=== PATIENT | male | born 1935 | race Caucasian/White ===

== ENCOUNTER 2017-04-14 12:45 | Emergency (ER) | payer OTHER ==
[2017-04-14 13:13] VITALS: TEMP 97.5; O2SAT 93
--- NOTE | 2017-04-14 13:31 | EDPHY ---
H & P Stated Complaint: fell wed, has bruising on right schwab concerned Time Seen by Provider: 04/14/17 13:30 HPI/ROS: CHIEF COMPLAINT: Bruising and swelling right tibia HISTORY OF PRESENT ILLNESS: The patient presents to the ED with complaints of bruising and swelling to his right distal tibia. The patient fell several days ago. He is anticoagulated with Coumadin. His last INR was therapeutic 3 weeks ago. The patient is ambulatory for short distances. He does have a prior history of stroke. The patient denies any fever. His reports that his urine has been foul smelling. He does have a history of urinary tract infections. REVIEW OF SYSTEMS: A comprehensive 10 point review of systems is otherwise negative aside from elements mentioned in the history of present illness. 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 No compartment syndrome clinically Neurological: The patient has baseline aphasia from his prior stroke Constitutional: Initial Vital Signs Temperature (C) 36.4 C 04/14/17 13:10 Heart Rate 54 L 04/14/17 13:10 Respiratory Rate 20 04/14/17 13:10 Blood Pressure 141/77 H 04/14/17 13:10 O2 Sat (%) 93 04/14/17 13:10 O2 Delivery Mode Room Air Allergies/Adverse Reactions: bacitracin [From Neosporin ([id number])] Allergy (Verified 04/14/17 13:06) lisinopril Allergy (Verified 04/14/17 13:06) metoprolol [From Toprol XL] Allergy (Verified 04/14/17 13:06) neomycin Allergy (Verified 04/14/17 13:06) petrolatum,white [From Petroleum Jelly] Allergy (Verified 04/14/17 13:06) polymyxin B Allergy (Verified 04/14/17 13:06) sulfamethoxazole [From Bactrim] Allergy (Verified 04/14/17 13:06) trimethoprim [From Bactrim] Allergy (Verified 04/14/17 13:06) surgical tape Allergy (Uncoded 04/14/17 13:06) Home Medications: Medication Instructions Recorded Aspirin 81mg (*) 04/14/17 Carvedilol 04/14/17 Citalopram 04/14/17 Folic Acid 04/14/17 Hydrochlorothiazide 04/14/17 Hytrin 1 MG (*) 04/14/17 Losartan Potassium 04/14/17 Multivitamin 04/14/17 Spiriva Inhaler (RX) 04/14/17 Vytorin 10-10 mg Tablet 04/14/17 Warfarin Sodium 04/14/17 Medical Decision Making - Diagnostics Imaging Results: Imaging Impressions Tibia/Fibula X-Ray 04/14/17 13:33 Impression: 1. Soft tissue swelling without underlying bone abnormality. 2. Atherosclerotic disease. ED Course/Re-evaluation: The patient presents the ED for evaluation of right tibial swelling ecchymosis following minor trauma week ago. The patient is currently anticoagulated with Coumadin. The patient did undergo an x-ray which demonstrated no evidence of fracture. His INR was checked and found not to be supratherapeutic. Additionally the patient did have some foul smelling urine for the past several days. In the ED, urinalysis demonstrates no evidence of an acute infection. The patient will be advised to elevate the extremity. He has no evidence of a compartment syndrome. He likely has a small hematoma. I do not feel his Coumadin needs to be held. Differential Diagnosis: Differential diagnosis considered includes fracture, sprain, contusion, hematoma , compartment syndrome - Data Points Laboratory Results: Laboratory Results 04/14/17 14:33 04/14/17 14:33 04/14/17 04/14/17 04/14/17 14:33 14:33 14:33 WBC 9.55 10^3/uL H 10^3/uL (3.80-9.50) RBC 4.41 10^6/uL 10^6/uL (4.40-6.38) Hgb 14.5 g/dL g/dL (13.7-17.5) Hct 41.7 % % (40.0-51.0) MCV 94.6 fL fL (81.5-99.8) MCH 32.9 pg pg (27.9-34.1) MCHC 34.8 g/dL g/dL (32.4-36.7) RDW 13.0 % % (11.5-15.2) Plt Count 184 10^3/uL 10^3/uL (150-400) MPV 9.5 fL fL (8.7-11.7) Neut % (Auto) 43.9 % % (39.3-74.2) Lymph % (Auto) 39.7 % % (15.0-45.0) [place] % (Auto) 11.1 % % (4.5-13.0) Eos % (Auto) 4.5 % % (0.6-7.6) Baso % (Auto) 0.5 % % (0.3-1.7) Nucleat RBC Rel Count 0.0 % % (0.0-0.2) Absolute Neuts (auto) 4.19 10^3/uL 10^3/uL (1.70-6.50) Absolute Lymphs (auto) 3.79 10^3/uL H 10^3/uL (1.00-3.00) Absolute Monos (auto) 1.06 10^3/uL H 10^3/uL (0.30-0.80) Absolute Eos (auto) 0.43 10^3/uL H 10^3/uL (0.03-0.40) Absolute Basos (auto) 0.05 10^3/uL 10^3/uL (0.02-0.10) Absolute Nucleated RBC 0.00 10^3/uL 10^3/uL (0-0.01) Immature Gran % 0.3 % % (0.0-1.1) Immature Gran # 0.03 10^3/uL 10^3/uL (0.00-0.10) PT 21.4 SEC H SEC (12.0-15.0) INR 1.85 H (0.83-1.16) Sodium 141 mEq/L mEq/L (134-144) Potassium 3.6 mEq/L mEq/L (3.5-5.2) Chloride 102 mEq/L mEq/L (97-110) Carbon Dioxide 27 mEq/l mEq/l (22-31) Anion Gap 12 mEq/L mEq/L (8-16) BUN 19 mg/dL mg/dL (7-23) Creatinine 0.8 mg/dL mg/dL (0.7-1.3) Estimated GFR > 60 Glucose 97 mg/dL mg/dL (70-100) Calcium 8.9 mg/dL mg/dL (8.5-10.4) Urine Color Urine Appearance Urine pH Ur Specific [place] Urine Protein Urine Ketones Urine Blood Urine Nitrate Urine Bilirubin Urine Urobilinogen Ur Leukocyte Esterase Urine Glucose 04/14/17 14:25 WBC RBC Hgb Hct MCV MCH MCHC RDW Plt Count MPV Neut % (Auto) Lymph % (Auto) [place] % (Auto) Eos % (Auto) Baso % (Auto) Nucleat RBC Rel Count Absolute Neuts (auto) Absolute Lymphs (auto) Absolute Monos (auto) Absolute Eos (auto) Absolute Basos (auto) Absolute Nucleated RBC Immature Gran % Immature Gran # PT INR Sodium Potassium Chloride Carbon Dioxide Anion Gap BUN Creatinine Estimated GFR Glucose Calcium Urine Color YELLOW Urine Appearance HAZY Urine pH 7.0 (5.0-7.5) Ur Specific [place] 1.015 (1.002-1.030) Urine Protein NEGATIVE (NEGATIVE) Urine Ketones NEGATIVE (NEGATIVE) Urine Blood NEGATIVE (NEGATIVE) Urine Nitrate NEGATIVE (NEGATIVE) Urine Bilirubin NEGATIVE (NEGATIVE) Urine Urobilinogen NEGATIVE EU EU (0.2-1.0) Ur Leukocyte Esterase NEGATIVE (NEGATIVE) Urine Glucose NEGATIVE (NEGATIVE) Departure - Departure Disposition: Home, Routine, Self-Care Clinical Impression: Leg hematoma Qualifiers: Encounter type: initial encounter Laterality: right Qualified Code(s): S80.11XA - Contusion of right lower leg, initial encounter Condition: Good Instructions: Contusion in Adults (ED) Additional Instructions: 1. A elevated extremity at night. 2. Ice 20-30 minutes at a time 4 to 5 times a day for the next several days. 3. Your x-ray demonstrates no evidence of a fracture and your INR is therapeutic. Additional your urinalysis demonstrates no evidence of an acute infection. 4. Return to the ED for markedly worsening pain, swelling, fever, numbness, weakness or other concerns. Referrals: NATALI CONNELL [Other] - As per Instructions
[2017-04-14 14:41] LABS: PLATELET COUNT 184 10^3/uL (150-400)
[2017-04-14 14:53] LABS: INR 1.85 (0.83-1.16); PROTIME(PATIENT) 21.4 SEC (12.0-15.0)
[2017-04-14 15:16] VITALS: BP 136/75; PULSE 60; RESP 16
== END 2017-04-14 15:26 | disposition home or self-care (01) ==
DX: S80.11XA Contusion of right lower leg, initial encounter (principal); I10 Essential (primary) hypertension; J45.909 Unspecified asthma, uncomplicated; Z87.891 Personal history of nicotine dependence; Z79.82 Long term (current) use of aspirin; Z79.01 Long term (current) use of anticoagulants; W19.XXXA Unspecified fall, initial encounter